=== PATIENT | male | born 1950 | race Caucasian/White ===

== ENCOUNTER 2017-04-21 12:35 | Emergency (ER) | payer MEDICARE ==
[2017-04-21] MEDS ORDERED: ALBUTEROL SULFATE 2.5 MG/0.5 ML VIAL.NEB IH ONE ×2 (12:44→12:48)
[2017-04-21] MEDS ORDERED: ASPIRIN 81 MG TAB.CHEW PO ONE (12:46)
[2017-04-21] MEDS ORDERED: ASPIRIN 81 MG TAB.CHEW ONE (12:48)
[2017-04-21 13:00] LABS: Hematocrit 44.2 % (42.0-52.0); Hemoglobin 15.1 gm/dL (13.5-18.0); Mean Cell Volume 87.5 fl (78-100); Mean Corpuscular Hemoglobin 29.9 pg (27-31); Mean Corpuscular Hgb Conc 34.2 g/dl (32-36); Mean Platelet Volume 10.2 fl (6.0-9.5); Neutrophil # 5.7 K/mm3 (1.3-6.0); Neutrophil % 55.2 % (42-75.0); Platelet Count 255 K/mm3 (150-450); Red Blood Count 5.05 M/mm3 (4.7-6.0); Red Cell Distribution Width 13.6 % (11.5-14.0); White Blood Count 10.4 K/mm3 (4.0-10.5)
--- NOTE | 2017-04-21 13:07 | ERNOTE ---
Dyspnea - General Presenting Symptoms: shortness of breath Time Seen by Provider: 04/21/17 12:40 Source: patient Exam Limitations: no limitations - Immun/Allergies/Home Medications Immunizations: IMMUNIZATION HX Immunizations Up to Date Yes History of Influenza Vaccine No Hx Pneumococcal Vaccination No Allergies/Adverse Reactions: Allergies hydrocodone [From Vicodin] Adverse Reaction (Severe, Verified 04/21/17 12:44) Other Home Medications: HOME MEDICATIONS Promethazine HCl/Codeine [Phenergan W/Codeine Syrup] 5 ml PO Q4H PRN #180 ml [Last Taken Unknown] Benzonatate [Tessalon] 200 mg PO TID PRN #30 cap 04/21/17 [Last Taken Unknown] predniSONE [Prednisone] 3 tab PO DAILY #12 tab 04/21/17 [Last Taken Unknown] - History of Present Illness Narrative: Patient denies any significant medical history. He has had a runny nose for a couple of days, started with a cough last night. About 30 minutes prior to coming his gave him cough medication with codeine that was left from last year when he was diagnosed with bronchitis. Shortly after that he became more short of breath and very anxious and came to the ER. He has reacted to vicodin in the past with feeling hot, sweaty, and anxious. He smoked heavy till ten years ago, now about 3-4 cigarettes a day Initiating event: Reports: upper resp illness Frequency of episodes: Reports: occassional episodes Associated Symptoms-Dyspnea: Reports: chest pain/discomfort, cough, wheezing. Denies: fever/chills, sweating Prior Treatment: Denies: recently seen, currently on antibiotics Review of Systems - Review of Systems Constitutional: Absent: recent illness, fever ENT: Present: See HPI. Absent: ear pain, sore throat Respiratory: Present: See HPI, shortness of breath, cough Cardiology: Present: chest pain - tightness Gastrointestinal/Abdominal: Absent: nausea, abdominal pain Genitourinary: Present: no symptoms reported Musculoskeletal: Present: no symptoms reported Skin: Present: no symptoms reported Neurological: Absent: headache, weakness, numbness - Patient's Past Medical History Patient History - Medical: No pertinent hx Patient History - Cardiac/Respiratory: No pertinent hx Patient History - Cancer: No Hx of Cancer Patient History - Surgical Procedures: No surgical history Patient History - Other: None - Social History Living Situations: home Psych History: No pertinent hx Smoking Status: Current every day smoker Have you smoked in the past 12 months: Yes Do you dip or chew tobacco: No Alcohol Use: sober Drug Use: none - Immunizations Immunizations Up to Date: Yes Hx Pneumococcal Vaccination: No History of Influenza Vaccine: No Physical Exam - Physical Exam General Appearance: Present: wd/wn, alert, mild distress, anxious Head Exam: Present: normal inspection Eye Exam: Normal inspection: bilateral, PERRL: bilateral Ears, Nose, Throat: Present: nasal congestion, normal pharynx Respiratory: Present: no accessory muscle use, chest nontender, rales, wheezing Cardiovascular/Chest: Present: regular rate, rhythm, no murmur Gastrointestinal/Abdominal: Present: nontender Extremity Exam: Present: no edema Neurological Exam: Present: alert, oriented, normal mood/affect Skin Exam: Present: normal color, warm/dry ED Progress - Results and Orders Patient's Lab Results:: I have reviewed the patient's lab results. - Vital Signs Patient's Vital Signs:: I have reviewed the patient's vital signs. Vital Signs: Vital Signs 04/21/17 12:40 Temperature 37.1 C Pulse Rate 90 Respiratory 23 H Rate Blood Pressure 195/97 O2 Sat by Pulse 93 Oximetry - EKG EKG: NSR, other - PVCs, poor quality, no acute changes EKG read: Interp. by me - X-Ray X-Ray #1 X-Ray: chest - hyperinflated, no infiltrate Interpretation: Interp. by me - Progress/Reassessment Chief Complaint: Dyspnea Progress Note-Subjective: 04/21/17 13:59 patient feeling much better, discussed results and plan patient has cut down on smoking but not been able to quit completely Departure Clinical Impression: Bronchitis, acute Qualifiers: Bronchitis organism: unspecified organism Qualified Code(s): J20.9 - Acute bronchitis, unspecified - Departure Disposition: Home self-care Condition: Good Instructions: Acute Bronchitis, [id number] Additional Instructions: use the inhaler with a spacer get over the counter mucinex, use the prednisone as prescribed Referrals: Matt Malloy DO [Primary Care Provider] - Prescriptions: Benzonatate [Tessalon] 200 mg PO TID PRN #30 cap PRN Reason: Cough predniSONE [Prednisone] 3 tab PO DAILY #12 tab
[2017-04-21 13:17] LABS: ALT 23 U/L (19-67); AST 13 U/L (0-48); Albumin * 3.5 gm/dl (3.4-5.0); Alkaline Phosphatase * 60 U/L (50-170); Anion Gap 9.5 mmol/L (6.8-13.8); Bilirubin, Total 0.9 mg/dL (0.0-1.1); Blood Urea Nitrogen 10 mg/dL (6-23); Ca. Corrected For Albumin 9.1 mg/dL (8.4-10.2); Carbon Dioxide 28.5 mmol/L (24-32.6); Chloride 105 mmol/L (97-106); Glucose * 99 mg/dL (70-110); Sodium 139 mmol/L (132-142); Total Protein 7.2 gm/dL (6.2-8.2)
[2017-04-21 13:18] LABS: Troponin I Less than 0.017 ng/ml (0.00-0.10)
[2017-04-21 13:41] VITALS: BP 140/75
== END 2017-04-21 14:15 | disposition home or self-care (01) ==
LOC: ER 12:35
DX: J20.9 Acute bronchitis, unspecified; F17.200 Nicotine dependence, unspecified, uncomplicated